=== PATIENT | female | born 1945 | race Caucasian/White ===

== ENCOUNTER 2018-07-02 01:33 | Inpatient (IN) ==
--- NOTE | 2018-07-02 01:46 | PROVIDER DOCUMENTATION ---
This chart was entered by Dolly Shirley Scribe, acting as scribe for Doug Price MD. HPI-General Adult - General Stated Complaint: B Time Seen by Provider: 07/02/18 01:33 Source: EMS Allergies/Adverse Reactions: Patient Allergies Allergy/AdvReac Type Severity Reaction Status Date / Time adhesive AdvReac RASH Verified 02/01/16 15:26 Home Medications: Home Medication List Medication Instructions Recorded Confirmed Last Taken Type Omeprazole 20 mg PO BID 11/23/13 10/29/17 02/01/16 History Morphine Sulfate [Morphine Sulfate 15 mg PO Q8HR 06/04/14 10/29/17 02/01/16 History ER] Gabapentin 400 mg PO TID 02/26/15 10/29/17 02/01/16 History Apixaban [Eliquis] 2.5 mg PO BID tablet 11/05/17 Unknown Rx Aspirin 81 mg PO DAILY chewtab 11/05/17 Unknown Rx Baclofen [Lioresal] 10 mg PO TID tablet 11/05/17 Unknown Rx LISINOpril [Prinivil] 2.5 mg PO DAILY tablet 11/05/17 Unknown Rx Oxycodone/APAP 10 mg/325 mg 1 each PO Q6H PRN PRN tablet 11/05/17 Unknown Rx [Percocet-10] Polyethylene Glycol 3350 [Miralax] 17 gm PO DAILY powder, packet 11/05/17 Unknown Rx ROSUVAstatin [Crestor] 40 mg PO DAILY tablet 11/05/17 Unknown Rx - History of Present Illness -Gen Adult Nature of Presenting Problems: pt is a 72 yr old white female with prior CVA with residual left sided weakness,chronic pain requiring daily morphine tablets, who is bedridden who presents by EMSwith reported altered mentation,apnea,and fingerstick glucose of 145. Patient arrives with GCS of 15, slow mentation, oriented to person/place/month. No reported fever, chest pain, productive cough. Review of Systems - Adult - REVIEW OF SYSTEMS - ADULT ROS:: limited per condition Constitutional: reports: no symptoms reported Eyes: reports: no symptoms reported Ears, Nose, Mouth & Throat: reports: no symptoms reported Cardiovascular: reports: no symptoms reported Respiratory: reports: no symptoms reported Gastrointestinal: reports: no symptoms reported Genitourinary: reports: no symptoms reported Musculoskeletal: reports: no symptoms reported Integumentary: reports: no symptoms reported Neurological: reports: no symptoms reported Psychiatric: reports: no symptoms reported Endocrine: reports: no symptoms reported Hematologic/Lymphatic: reports: no symptoms reported Allergic/Immunologic: reports: no symptoms reported All Other Systems: Reviewed and Negative Past History - Adult - PAST MEDICAL HISTORY-ADULT Review of Records: reports: Old Records Reviewed, Nursing Assessment Review, Medications Reviewed, Social history reviewed & non-contributory. Major Childhood Illnesses: reports: denies history Cardiovascular: reports: HTN Respiratory: reports: denies history Gastrointestinal: reports: ulcer Obstetrical/Gynecological: reports: denies history Genitourinary: reports: denies history Musculoskeletal: reports: chronic pain, intervertebral disc disease Neurological: reports: CVA, headaches/migraines Psychiatric: reports: anxiety Endocrine/Immune: reports: denies history Other Conditions: reports: denies history - PRIOR SURGERIES/PROCEDURES Surgical/Procedure History: reports: appendectomy, hysterectomy, BTL, back/neck (cervical and lumbar fusion), other (nerve stimulator) - IMMUNIZATION STATUS Childhood Immunizations: See Nurse Assessment Flu Vaccine: See Nurse Assessment - FAMILY HISTORY Family History: reviewed, not pertinent - SOCIAL HISTORY Living Situation: family Physical Exam-General - PHYSICAL EXAM-ADULT Initial Vital Signs Reviewed: Yes - CONSTITUTIONAL General Appearance: no apparent distress, slow to respond, other (bedridden with notable left sided weakness) - EYES Eyes: PERRL/EOMI - HEAD, EARS, NOSE, MOUTH & THROAT HENMT: normocephalic/atraumatic, moist mucous membranes - NECK Neck: supple - RESPIRATORY Respiratory: lungs clear, no pleuratic chest pain, no respiratory distress, no accessory muscle use - CARDIOVASCULAR Cardiovascular: regular rate, rhythm - GASTROINTESTINAL (ABDOMEN) Abdominal Exam: normal bowel sounds, non tender, soft - LYMPHATIC Lymphatic: no adenopathy - MUSCULOSKELETAL Back Exam: normal inspection, no CVA tenderness Extremity: other (left sided weakness) Peripheral Pulses: radial (R): 2+, radial (L): 2+ - SKIN Integumentary: normal color, normal turgor, warm/dry - NEUROLOGIC Neurologic: other (left sided weakness, uncooperative to exam) - PSYCHIATRIC Psych/Mental Status: oriented x 3, depressed affect Progress - PLAN OF CARE/RESULTS Result Diagrams: 07/02/18 02:00 07/02/18 02:00 - CONSULTS/PCP/HOSPITALIST Notification #1 *Consult/PCP/Hospitalist*: Dr. Chapin, hospitalist Time Discussed: 03:45 Consult Disposition: Admit Departure - Departure Date of Disposition Decision: 07/02/18 Time of Disposition Decision: 04:11 DIAGNOSIS: Hypernatremia, Hypoxemia Adverse drug reaction Qualifiers: Encounter type: initial encounter Qualified Code(s): T50.905A - Adverse effect of unspecified drugs, medicaments and biological substances, initial encounter Disposition: ADMITTED INPATIENT 09 Certified Medical Emergency: Emergent Condition: Stable Referrals and Follow-Ups: None,PCP [Primary Care Provider] - - Critical Care Note This patient required my direct & personal management of CC.: Yes Attestation - Physician/ DEBORA Attestation Patient care was provided by Advanced Practice Provider:: No The physician spent face to face time with patient:: Yes Advanced Practice Provider documentation review:: Supervising physician onsite and consulted in the evaluation and care of this patient. The physician did have a face to face encounter with the patient. This chart was documented by the indicated scribe, (Dolly Shirley Scribe) and accurately reflects the services I performed and decisions made by me, Brett Price ph, MD, as attested by the provider's signature.
[2018-07-02 01:48] LABS: BE 2.7 mmoll (-3.0-3.0); BLOOD TYPE ARTERIAL; METHB 1.3 % (0.0-1.5); O2(CT) 16.6 mL/dL (15.0-23.0); O2HB 94.6 % (95.0-99.0); PO2(98.6) 143 mmHg (60-100); SAMPLE BLOOD; SAO2 95.8 % (95.0-100.0); THB 12.3 g/dL (11.5-17.4); pH(98.6) 7.35 (7.35-7.45)
[2018-07-02 01:53] LABS: ALLEN TEST NO; MODALITY CANNULA; PCO2(98.6) 53 mmHg (35-45)
[2018-07-02 02:39] LABS: BASO# 0.05 X1000 (0.0-0.2); BASO% 0.7 % (0.0-0.8); EOS# 0.38 X1000 (0.0-0.7); EOS% 5.3 % (0.0-10.0); HEMATOCRIT 38.2 % (37.0-47.0); HEMOGLOBIN 12.2 g/dL (12.0-16.0); IMM GRAN# 0.02 X1000 (0.0-0.04); IMM GRAN% 0.3 % (0.0-0.5); LYMPH# 2.07 X1000 (1.2-3.4); LYMPH% 28.8 % (20.5-51.1); MCH 29.2 PG (27-31); MCHC 31.9 g/dL (33-37); MCV 91.4 FL (81-99); MONO# 0.75 X1000 (0.11-0.59); MONO% 10.4 % (1.7-9.3); MPV 9.7 FL (7.4-10.4); NEUT# 3.92 X1000 (1.4-6.5); NEUT% 54.5 % (42.2-75.2); PLT 249 X1000 (130-400); RBC 4.18 XMIL (4.2-5.4); RDW 13.5 % (11.5-14.5); WBC 7.19 X1000 (4.8-10.8)
[2018-07-02 03:05] LABS: BILIRUBIN URINE 2+ (NEGATIVE); BLOOD URINE TRACE (NEGATIVE); CLARITY SL. CLOUDY (CLEAR); COLOR ORANGE; GLUCOSE URINE NEGATIVE (NEGATIVE); KETONE URINE NEGATIVE (NEGATIVE); LEUKOCYTES URINE NEGATIVE (NEGATIVE); NITRITE URINE POSITIVE (NEGATIVE); PROTEIN URINE 2+(100 mg/dL) mg/dL (NEGATIVE); SP GRAVITY URINE 1.025; UR AMPHETAMINES QUAL NONE DETECTED (NONE DETECT); UR BARBITUATES QUAL NONE DETECTED (NONE DETECT); UR BENZODIAZEPIN QUAL NONE DETECTED (NONE DETECT); UR COCAINE QUAL NONE DETECTED (NONE DETECT); UR METHADONE QUAL NONE DETECTED (NONE DETECT); UR METHAMPHETAMINE QUAL NONE DETECTED (NONE DETECT); UR OPIATES QUAL PRESUMPTIVE POSITIVE (NONE DETECT); UR OXYCODONE QUAL PRESUMPTIVE POSITIVE (NONE DETECT); UR PCP QUAL NONE DETECTED (NONE DETECT); UROBILINOGEN URINE 8 mg/dL
[2018-07-02 03:06] LABS: UR CANNABINOIDS QUAL PRESUMPTIVE POSITIVE (NONE DETECT); UR PROPOXYPHENE QUAL NONE DETECTED (NONE DETECT); UR TCA QUAL PRESUMPTIVE POSITIVE (NONE DETECT); URINE BACTERIA 4+ /HFP; URINE EPITHELIAL CELLS <10 /HPF (<10); URINE RBC <10 /HPF (<10); URINE SOURCE CATH; URINE WBC <10 /HPF (<10)
[2018-07-02 03:20] LABS: AGAP 10; ALBUMIN 3.9 g/dL (3.5-5.0); ALKALINE PHOSPHATASE 61 U/L (32-104); BUN 13 mg/dL (8-22); CHLORIDE 110 mmol/L (98-107); COSMO 294; CREATININE 0.4 mg/dL (0.5-0.9); ESTIMATED GFR > 60; GLUCOSE 156 mg/dL (70-104); GOT 10 U/L (10-30); GPT 8 U/L (10-36); POTASSIUM 3.8 mmol/L (3.5-5.1); SODIUM 146 mmol/L (136-145); TCO2 26 mmol/L (25-35); TOTAL PROTEIN 6.3 g/dL (6.3-8.3)
[2018-07-02] MEDS ORDERED: NS 1,000 ML IV ONE (03:45)
[2018-07-02] MEDS ORDERED: NS 500 ML IV ONE (03:46)
[2018-07-02] MEDS ORDERED: NS 500 ML ONE (03:50)
[2018-07-02] MEDS ORDERED: ROCEPHIN 1 GM in NS 50 ML IV ONE (04:10)
--- NOTE | 2018-07-02 05:24 | Diag Imaging Result Doc PS360 ---
EXAM: CT HEAD W/O CONTRAST HISTORY: ams TECHNIQUE: CT head without contrast COMPARISON: 10/30/2017 FINDINGS: No parenchymal hemorrhage. No epidural or subdural hematoma. No subarachnoid hemorrhage. There is atrophy with chronic microvascular ischemic changes and multiple old small infarcts on the right. No mass identified on this noncontrasted exam. No hydrocephalus. No sinus opacification. IMPRESSION: 1.No hemorrhage 2.Atrophy with chronic microvascular ischemic changes and small old right-sided infarcts A preliminary report was given at 3:36 AM This exam was performed using automated exposure control, adjustment of mA or kV according to patient size, and/or use of iterative reconstruction technique. Electronically signed by Isaac Cobb 07/02/2018 5:22 AM
--- NOTE | 2018-07-02 05:30 | Diag Imaging Result Doc PS360 ---
EXAM: CHEST-PORTABLE HISTORY: cough TECHNIQUE: Portable chest single view COMPARISON: 10/28/2017 FINDINGS: The lungs are well expanded. The heart is not enlarged. The vessels are not distended. There are no infiltrates. No effusion identified. There has been surgery to the lower neck. IMPRESSION: No pneumonia. 'T Electronically signed by Isaac Cobb 07/02/2018 5:28 AM
[2018-07-02 08:02] LABS: BASO# 0.04 X1000 (0.0-0.2); BASO% 0.5 % (0.0-0.8); EOS# 0.33 X1000 (0.0-0.7); EOS% 4.5 % (0.0-10.0); HEMATOCRIT 38.9 % (37.0-47.0); HEMOGLOBIN 12.3 g/dL (12.0-16.0); IMM GRAN# 0.01 X1000 (0.0-0.04); IMM GRAN% 0.1 % (0.0-0.5); LYMPH% 28.6 % (20.5-51.1); MCH 29.1 PG (27-31); MCHC 31.6 g/dL (33-37); MCV 92.2 FL (81-99); MONO# 0.62 X1000 (0.11-0.59); MONO% 8.5 % (1.7-9.3); MPV 9.6 FL (7.4-10.4); NEUT# 4.23 X1000 (1.4-6.5); NEUT% 57.8 % (42.2-75.2); PLT 226 X1000 (130-400); RBC 4.22 XMIL (4.2-5.4); RDW 13.5 % (11.5-14.5); WBC 7.33 X1000 (4.8-10.8)
--- NOTE | 2018-07-02 08:11 | HISTORY AND PHYSICAL ---
ADDENDUM: Patient seen and examined by myself. Full note dictated and discussed with nurse practitioner. Patient presented to the hospital with a presumed syncopal episode. She was confused, disoriented. Unclear as to the etiology. Certainly she could have a urinary tract infection. We have her on antibiotics, IV fluids and awaiting cultures. However, the does note that she does not take morphine on a regular basis. In fact, had been out of it for 2 weeks because she ran out early from her previous daily usage. He did give her the typical dose yesterday and her confusion started last night, which certainly could be medication-related. However, she is very tired, fatigued, and difficult to arouse this morning still. So we will place her in the hospital and will follow. Please see full orders. cc: Rod Chapin MD
[2018-07-02 08:19] LABS: AGAP 9; ALBUMIN 3.9 g/dL (3.5-5.0); ALKALINE PHOSPHATASE 59 U/L (32-104); BUN 8 mg/dL (8-22); CALCIUM 9.8 mg/dL (8.8-10.2); CHLORIDE 106 mmol/L (98-107); CK PROFILE 18 U/L (24-173); COSMO 284; CREATININE 0.3 mg/dL (0.5-0.9); ESTIMATED GFR > 60; GLUCOSE 108 mg/dL (70-104); GOT 9 U/L (10-30); GPT 7 U/L (10-36); MAGNESIUM 1.7 mg/dL (1.5-2.7); SODIUM 143 mmol/L (136-145); TCO2 28 mmol/L (25-35); TOTAL PROTEIN 6.4 g/dL (6.3-8.3)
[2018-07-02 08:21] LABS: INR 1.02; PROTIME 13.9 Seconds (11.0-16.0)
[2018-07-02] MEDS ORDERED: SENOKOT PO PRN (09:47)
[2018-07-02] MEDS: NS 1,000 ML IV ONE ×2 (10:33→15:38)
[2018-07-02] MEDS: TYLENOL PO PRN ×3 (10:40→21:40)
[2018-07-02] MEDS: DUONEB (A & A) INH SCH ×4 (11:30→23:48)
--- NOTE | 2018-07-02 11:59 | HISTORY AND PHYSICAL ---
CHIEF COMPLAINT: Altered mental status and apnea. HISTORY OF PRESENT ILLNESS: Mrs. 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 The patient herself is a poor historian, is not at the bedside at this time, she is able to tell us that she has been out of her morphine, which she takes on a chronic basis, for about 2 weeks. She refilled the prescription yesterday and took her morphine as prescribed, sometime last night she was noted to be altered by her and apparently stopped breathing. There was a question of CPR, but ultimately 911 was called, and she was brought to the ER. In the ER, she was noted to be drowsy. Head CT was done, which did not show anything acute. Laboratory data was unremarkable with the exception of some mild hypernatremia and mild respiratory acidosis. Given that, she was admitted to our service. She is hemodynamically stable at this time and has no acute complaints with the exception of her chronic pain. PAST MEDICAL HISTORY: 1. History of right hemispheric stroke secondary to acute right carotid thrombus status post right carotid embolectomy by Dr. Manrique. 2. Chronic pain on narcotic therapy, pain is cervical spine and lumbar spine related. 3. Obstructive sleep apnea with poor medical compliance with CPAP. 4. Hypertension. PAST SURGICAL HISTORY: 1. She has had a hysterectomy. 2. Appendectomy. 3. Carpal tunnel surgery. 4. Cataract surgery. 5. C-spine and L-spine fusions. 6. Total knee arthroplasty. 7. Carotid embolectomy on the right. SOCIAL HISTORY: She is . currently not at the bedside. She denies tobacco, alcohol, or illicit drug use. ALLERGIES: Adhesive tapes. HOME MEDICATIONS: Tylenol 500 mg as needed every 4 hours, amitriptyline 50 mg p.o. at bedtime, duloxetine 30 mg p.o. daily, Neurontin 800 mg p.o. at bedtime, Lioresal 20 mg t.i.d., lovastatin 40 mg daily, Mirapex 0.125 mg p.o. t.i.d., morphine sulfate 15 mg p.o. every 8 hours, omeprazole 20 mg p.o. daily, Senokot 17.2 mg daily, trazodone 50-100 mg p.o. at bedtime, aspirin 81 mg daily, lisinopril 2.5 mg p.o. daily. REVIEW OF SYSTEMS: A 10-point review of systems obtained and found to be negative with the exception of the HPI. PHYSICAL EXAMINATION: VITAL SIGNS: Blood pressure is 128/60, heart rate is 69, respiratory rate 16, O2 saturation 96% on nasal cannula 4 L, temperature is 97.7. GENERAL: This is an elderly somewhat disheveled-appearing 72-year-old female lying in the hospital bed in no acute distress. NEUROLOGICAL: She is disoriented to time and place but she is able to state her name. She has left-sided paralysis. Strength is 5/5 in the right upper and lower extremity. Shoulder shrug is intact 5/5 on the right. Random alternating movements on the right is slow but intact. HEENT: Head is atraumatic and normocephalic. Her pupils are equal, round, and reactive to light. Oral mucosa is moist. NECK: Trachea is midline. There is no JVD. CHEST: Clear to auscultation. CARDIOVASCULAR: Regular rate and rhythm. S1 and S2 is noted. There are no murmurs. GASTROINTESTINAL: Soft, nondistended, nontender. Bowel sounds positive. EXTREMITIES: Lower extremities with 1+ edema bilaterally, pulses diminished but palpable. DIAGNOSTIC DATA: Head CT nothing acute. Chest x-ray is negative. EKG is pending. LAB DATA: WBC 7.33, hemoglobin 12.3, hematocrit 38.9, platelet count 226. INR 1.02. Sodium 143, potassium 4.0, chloride 106, CO2 28, anion gap 9, BUN 8, creatinine 0.3, glucose is 108, calcium 9.8, magnesium 1.7, total bilirubin 0.2, AST 9, ALT 7, alkaline phosphatase 59. CK 18, troponin negative. Albumin 3.9. ASSESSMENT AND PLAN: 1. Toxic encephalopathy: Very likely secondary to her morphine use as she had not taken any for 2 weeks and then restarted abruptly yesterday. Symptoms coincide with readministration of this medication. She does have evidence of urinary tract infection but this is unlikely the cause of the level of mentation changes in this patient. Will continue antibiotics and light IV fluids. 2. Urinary tract infection: Continue Rocephin. 3. History of cerebrovascular accident with left-sided hemiplegia. Aware. No new focal deficits noted. Head CT negative. 4. Chronic pain. We will hold her medications at least for now and monitor her response. She is quite drowsy at this time. Will need to look at her medication list and try and decide if medications need to be stopped and discuss with primary care provider. 5. Hypertension. Continue Prinivil. 6. Deep venous thrombosis prophylaxis with Lovenox. 7. Disposition. Will consult physical therapy and social work as she may need placement. Dictated by SPRING Luna for Rod Chapin MD cc: SPRING Luna MD
[2018-07-02] MEDS: LIORESAL PO SCH ×2 (12:26→18:32)
[2018-07-02] MEDS: ELAVIL PO SCH (21:10)
[2018-07-03] MEDS: TYLENOL PO PRN ×4 (01:40→22:35)
[2018-07-03] MEDS: DUONEB (A & A) INH SCH ×6 (04:23→23:04)
[2018-07-03] MEDS: ROCEPHIN 1 GM in NS 50 ML IV SCH (05:13)
[2018-07-03] MEDS: PRILOSEC PO SCH (06:19)
[2018-07-03 06:40] LABS: BASO# 0.03 X1000 (0.0-0.2); BASO% 0.5 % (0.0-0.8); EOS# 0.31 X1000 (0.0-0.7); EOS% 5.2 % (0.0-10.0); HEMATOCRIT 38.2 % (37.0-47.0); HEMOGLOBIN 11.8 g/dL (12.0-16.0); IMM GRAN# 0.01 X1000 (0.0-0.04); IMM GRAN% 0.2 % (0.0-0.5); LYMPH% 33.3 % (20.5-51.1); MCH 28.3 PG (27-31); MCHC 30.9 g/dL (33-37); MCV 91.6 FL (81-99); MONO# 0.45 X1000 (0.11-0.59); MONO% 7.5 % (1.7-9.3); MPV 9.8 FL (7.4-10.4); NEUT% 53.3 % (42.2-75.2); PLT 210 X1000 (130-400); RBC 4.17 XMIL (4.2-5.4); RDW 13.4 % (11.5-14.5)
[2018-07-03 06:57] LABS: AGAP 11; BUN 8 mg/dL (8-22); CALCIUM 9.7 mg/dL (8.8-10.2); CHLORIDE 107 mmol/L (98-107); COSMO 288; CREATININE 0.2 mg/dL (0.5-0.9); ESTIMATED GFR > 60; GLUCOSE 114 mg/dL (70-104); POTASSIUM 3.4 mmol/L (3.5-5.1); SODIUM 145 mmol/L (136-145); TCO2 28 mmol/L (25-35)
[2018-07-03] MEDS: LIORESAL PO SCH ×3 (11:26→18:10)
[2018-07-03] MEDS: PRINIVIL PO SCH (11:26)
[2018-07-03] MEDS: CYMBALTA PO SCH (11:26)
[2018-07-03] MEDS: VITAMIN D PO SCH (11:27)
[2018-07-03] MEDS: ASPIRIN PO SCH (11:27)
[2018-07-03] MEDS: MEVACOR PO SCH (11:27)
[2018-07-03] MEDS ORDERED: NICODERM PATCH TD SCH (15:15)
[2018-07-03] MEDS: ELAVIL PO SCH (20:54)
--- NOTE | 2018-07-03 22:32 | PROGRESS NOTE ---
DATE: 07/03/2018 SUBJECTIVE: The patient's notes she still cannot participate in her own care at home. Denies any fevers or chills. PHYSICAL EXAM: Vital Signs: Temperature 99, pulse 81, respiratory rate 20, BP 112/55. General: Patient is awake, alert. She is in no current respiratory distress. HEENT: Normocephalic. Neck: Supple. Cardiovascular: Regular rate. Chest: Clear. Abdomen: Soft. Extremities: She has no edema. Neurologic: No focal changes. ASSESSMENT: 1. Toxic encephalopathy, appears resolved, likely secondary to medication over usage. 2. Urinary tract infection which certainly can be causing her metabolic encephalopathy. 3. Chronic pain. 4. History of cerebrovascular accident with resultant left-sided hemiplegia. PLAN: Continue patient in hospital. Continue Rocephin and will follow. We will get physical therapy involved. cc: Rod Chapin MD
[2018-07-04] MEDS: TYLENOL PO PRN ×3 (02:44→20:42)
[2018-07-04] MEDS: DUONEB (A & A) INH SCH ×6 (03:14→22:43)
[2018-07-04] MEDS: ROCEPHIN 1 GM in NS 50 ML IV SCH (06:05)
[2018-07-04] MEDS: PRILOSEC PO SCH (06:43)
[2018-07-04 07:03] LABS: BASO# 0.03 X1000 (0.0-0.2); BASO% 0.4 % (0.0-0.8); EOS# 0.35 X1000 (0.0-0.7); EOS% 4.3 % (0.0-10.0); HEMATOCRIT 39.9 % (37.0-47.0); HEMOGLOBIN 12.7 g/dL (12.0-16.0); IMM GRAN# 0.01 X1000 (0.0-0.04); IMM GRAN% 0.1 % (0.0-0.5); LYMPH# 1.82 X1000 (1.2-3.4); LYMPH% 22.4 % (20.5-51.1); MCH 28.5 PG (27-31); MCHC 31.8 g/dL (33-37); MCV 89.7 FL (81-99); MONO# 0.84 X1000 (0.11-0.59); MONO% 10.3 % (1.7-9.3); MPV 9.9 FL (7.4-10.4); NEUT# 5.07 X1000 (1.4-6.5); NEUT% 62.5 % (42.2-75.2); PLT 239 X1000 (130-400); RBC 4.45 XMIL (4.2-5.4); RDW 13.8 % (11.5-14.5); WBC 8.12 X1000 (4.8-10.8)
[2018-07-04 07:27] LABS: AGAP 13; BUN 7 mg/dL (8-22); CALCIUM 10.6 mg/dL (8.8-10.2); CHLORIDE 103 mmol/L (98-107); COSMO 283; CREATININE 0.3 mg/dL (0.5-0.9); ESTIMATED GFR > 60; GLUCOSE 104 mg/dL (70-104); POTASSIUM 3.5 mmol/L (3.5-5.1); SODIUM 143 mmol/L (136-145); TCO2 28 mmol/L (25-35)
[2018-07-04] MEDS: MEVACOR PO SCH (08:38)
[2018-07-04] MEDS: ASPIRIN PO SCH (08:39)
[2018-07-04] MEDS: PRINIVIL PO SCH (08:39)
[2018-07-04] MEDS: CYMBALTA PO SCH (08:39)
[2018-07-04] MEDS: LIORESAL PO SCH ×3 (08:39→18:04)
[2018-07-04] MEDS: VITAMIN D PO SCH (08:39)
[2018-07-04] MEDS ORDERED: NS 1,000 ML ONE (13:51)
[2018-07-04] MEDS: ELAVIL PO SCH (20:42)
--- NOTE | 2018-07-04 21:35 | PROGRESS NOTE ---
DATE: 07/04/2018 SUBJECTIVE: Patient has no new complaints. She states she is still tired and fatigued. She is unable to get out of bed with assistance. Her notes that mentally she seems to be back to her baseline. OBJECTIVE: Temperature 97.8 degrees, pulse 90, respiratory rate 18, BP 145/65.General: Patient is awake, alert, currently in no respiratory distress. HEENT: Normocephalic. Neck: Supple. Cardiovascular: Regular rate. Chest: Clear. Abdomen: Soft. Extremities: She has 1+ edema bilaterally. Neurologic: No focal changes. ASSESSMENT: 1. Escherichia coli urinary tract infection, alicea sensitive. Currently on Rocephin. 2. Metabolic encephalopathy secondary to Escherichia coli, improved. 3. History of cerebrovascular accident with right-sided hemiplegia. 4. Chronic pain. 5. Hypertension. PLAN: We will continue patient in the hospital. Certainly feel as though she will need rehabilitation prior to discharge. We will continue to follow. cc: Rod Chapin MD
[2018-07-05] MEDS: DUONEB (A & A) INH SCH ×6 (00:04→19:56)
[2018-07-05] MEDS: TYLENOL PO PRN ×2 (02:29→20:18)
[2018-07-05] MEDS: PRILOSEC PO SCH (06:15)
[2018-07-05] MEDS: ROCEPHIN 1 GM in NS 50 ML IV SCH (06:15)
[2018-07-05] MEDS: VITAMIN D PO SCH (08:43)
[2018-07-05] MEDS: MIRAPEX PO SCH ×3 (08:44→16:21)
[2018-07-05] MEDS: CYMBALTA PO SCH (08:44)
[2018-07-05] MEDS: ASPIRIN PO SCH (08:44)
[2018-07-05] MEDS: LIORESAL PO SCH ×3 (08:44→16:21)
[2018-07-05] MEDS: MS CONTIN PO SCH ×2 (08:45→20:08)
[2018-07-05] MEDS: MEVACOR PO SCH (08:52)
[2018-07-05] MEDS: PRINIVIL PO SCH (08:52)
[2018-07-05] MEDS ORDERED: MS CONTIN PO SCH (13:00)
--- NOTE | 2018-07-05 17:14 | PROGRESS NOTE ---
DATE: 07/05/2018 SUBJECTIVE: Patient is wanting her home medications restarted. Says she has not been sleeping well. States she is having restless leg issues. Denies any current other complaints. PHYSICAL EXAM: Vital Signs: Temp 98 degrees, pulse 101, respiratory 18, BP 142/73. General: Patient is awake, alert. She is currently in no respiratory distress. She appears oriented back to her baseline mental status. HEENT: Normocephalic. Neck: Supple. CARDIOVASCULAR: Regular rate. Chest: Clear, nonlabored. Abdomen: Soft, nondistended. Extremities: Moves all extremities with the exception of left side which has chronic weakness due to a previous CVA. ASSESSMENT: 1. Metabolic encephalopathy likely secondary to medication over usage. 2. Restless legs syndrome. 3. History of cerebrovascular accident with left-sided hemiplegia. 4. Chronic pain. 5. Hypertension. 6. ESBL negative E. coli UTI. PLAN: We will continue Rocephin. We will restart her home medications although discussed with patient that I am concerned that this may be what caused her to be in the hospital to start with, certainly could be the UTI causing metabolic encephalopathy, but her symptoms resolved way too quickly for it to have been just simply been from a UTI. Most likely it was medication over usage unintentionally. We will follow closely. cc: Rod Chapin MD
[2018-07-05] MEDS: ELAVIL PO SCH (20:08)
[2018-07-05] MEDS: NEURONTIN PO SCH (20:08)
[2018-07-06] MEDS: ROCEPHIN 1 GM in NS 50 ML IV SCH (04:13)
[2018-07-06] MEDS: DUONEB (A & A) INH SCH ×6 (04:38→23:21)
[2018-07-06] MEDS: PRILOSEC PO SCH (06:14)
[2018-07-06] MEDS: CYMBALTA PO SCH (08:28)
[2018-07-06] MEDS: VITAMIN D PO SCH (08:28)
[2018-07-06] MEDS: MEVACOR PO SCH (08:28)
[2018-07-06] MEDS: LIORESAL PO SCH ×3 (08:29→17:15)
[2018-07-06] MEDS: MS CONTIN PO SCH ×2 (08:29→20:07)
[2018-07-06] MEDS: ASPIRIN PO SCH (08:29)
[2018-07-06] MEDS: MIRAPEX PO SCH ×3 (08:29→17:15)
[2018-07-06] MEDS: PRINIVIL PO SCH (08:30)
--- NOTE | 2018-07-06 17:47 | PROGRESS NOTE ---
DATE: 07/06/2018 SUBJECTIVE: Patient notes that she is feeling fine. Denies any confusion, disorientation. Denies any chest pain. PHYSICAL EXAMINATION: Vital Signs: Temperature 97.7 degrees, pulse 79, respiratory rate 18, BP 127/66. General: Patient is awake, alert. She is in no distress. HEENT: Normocephalic. Neck: Supple. Cardiovascular: Regular rate. Chest: Clear and nonlabored. Abdomen: Soft, nondistended. Extremities: She moves all extremities, although still has left-sided hemiplegia from recent stroke. Neurologic: No acute focal neurological changes. ASSESSMENT: 1. Metabolic encephalopathy. Likely secondary to her Escherichia coli urinary tract infection, although certainly could have some bearing from her recent restarting of her medications. 2. Cerebrovascular accident with left-sided weakness and hemiplegia. 3. Chronic pain. 4. Hypertension. PLAN: Overall patient is better. We will continue antibiotics. Tomorrow she can transition to oral antibiotics. I will continue Rocephin today. We will continue physical therapy. Can transfer to rehab when bed is available. cc: Rod Chapin MD
[2018-07-06] MEDS: ELAVIL PO SCH (20:07)
[2018-07-06] MEDS: NEURONTIN PO SCH (20:07)
[2018-07-07] MEDS: DUONEB (A & A) INH SCH ×3 (03:19→11:59)
[2018-07-07] MEDS: ROCEPHIN 1 GM in NS 50 ML IV SCH (04:05)
[2018-07-07] MEDS: PRILOSEC PO SCH (06:04)
[2018-07-07] MEDS: PRINIVIL PO SCH (10:23)
[2018-07-07] MEDS: MS CONTIN PO SCH (10:23)
[2018-07-07] MEDS: ASPIRIN PO SCH (10:23)
[2018-07-07] MEDS: LIORESAL PO SCH (10:23)
[2018-07-07] MEDS: CYMBALTA PO SCH (10:24)
[2018-07-07] MEDS: VITAMIN D PO SCH (10:26)
[2018-07-07] MEDS: MIRAPEX PO SCH (10:26)
[2018-07-07] MEDS: TYLENOL PO PRN (11:42)
--- NOTE | 2018-07-07 12:13 | DISCHARGE SUMMARY ---
ADMISSION DATE: 07/03/2018 DISCHARGE DATE: DISCHARGE ADDENDUM: She is sitting up in bed. Her only complaint is left foot pain. She seems fairly with it or at least at baseline. Her exam is unremarkable. She has left-sided hemiplegia with left-sided facial weakness too. She is going to go to rehab today. She has a nearly pansensitive E. coli intermediately sensitive to ampicillin. Of course, she is going out on Levaquin 500 mg for another 5 days in addition to her other medications. Discharge condition is stable. This is a [id number] encounter note with Maria R Corona. TIME SPENT: Greater than 30 minute discharge. cc: Lex Morales MD
--- NOTE | 2018-07-07 12:37 | DISCHARGE SUMMARY ---
ADMISSION DATE: 07/02/2018 DISCHARGE DATE: 07/07/2018 CONSULTATIONS: None. PERTINENT PROCEDURES: Head CT. No hemorrhage. Atrophy with chronic microvascular ischemic changes and small right sided infarct. DISCHARGE DIAGNOSES: 1. Toxic encephalopathy, believed to be secondary to morphine use. The patient had not taken any for 2 weeks. Then restarted abruptly the day before admission. Her symptoms coincided with readministration of the medications. She did have evidence of a urinary tract infection. She was placed on intravenous antibiotics and initially held any sedating medications. She is now awake, alert, and oriented. Follows commands. Answers questions appropriately and has been accepted to [facility]. 2. Urinary tract infection, Escherichia coli. She has been on intravenous Rocephin and will transition over to oral Levaquin. 3. History of cerebrovascular accident with left-sided hemiplegia, aware. No new focal deficits. Head computed tomography negative. 4. Chronic pain. Initially her home medications were held. She has been reinitiated back on her morphine and gabapentin. 5. Hypertension. Continue Prinivil. HOSPITAL COURSE: Briefly, Ms. Panchal is a 72-year-old female with history of right- sided hemispheric CVA secondary to carotid artery occlusion with complete left-sided hemiplegia, chronic pain, on heavy narcotic therapy, presented to the ED with weakness and questionable apnea, as well as altered mental status. The patient had been on her morphine for 2 weeks. She refilled her prescription the day prior to admission and took her morphine as prescribed. She was noted to be altered by her the night before and apparently she stopped breathing. There was a question of CPR, but 911 was ultimately called. She was brought to the ED. Noted to be drowsy. Head CT did not show anything acute. Laboratory data was essentially unremarkable except for some mild hyponatremia and mild respiratory acidosis. She was hemodynamically stable. She was admitted to the hospitalist service. Initially held any sedating medications, treated for her urinary tract infection. Slowly started back on her home pain medications. The patient has tolerated well. She has had a stable hospital course and will be discharged to [facility] today. VITAL SIGNS: Temperature is 98.1 degrees, heart rate 88, respirations 18, blood pressure 134/58, O2 99% on room air. DISCHARGE DIET: Regular. DISCHARGE MEDICATIONS: 1. Amitriptyline 50 mg p.o. at bedtime. 2. Gabapentin 800 mg p.o. at bedtime. 3. Trazodone 50 mg 1 to 2 tablets p.o. at bedtime p.r.n. 4. Tylenol 500 mg p.o. q.4 hours p.r.n. pain. 5. Morphine sulfate 15 mg p.o. q.8 hours. 6. Baclofen 20 mg p.o. t.i.d. 7. Lovastatin 40 mg p.o. daily. 8. Mirapex 0.25 mg p.o. t.i.d. 9. Prilosec 20 mg p.o. daily. 10. Senna 2 tablets p.o. daily. 11. Vitamin D 5000 units p.o. daily. 12. Cymbalta 30 mg p.o. daily. 13. Aspirin 81 mg p.o. daily. 14. Levaquin 500 mg p.o. daily. 15. Prinivil 2.5 mg p.o. daily. FOLLOW-UP: Ms. Hernandez is being discharged to [facility] for physical therapy. She is to take all medications as prescribed. She can return to the ED or call 911 for any worsening of symptoms. Dictated by SPRING Carreon for Lex Morales MD cc: Lex Morales MD
[2018-07-07 14:12] VITALS: BP 96/51
[2018-07-07] MEDS ORDERED: MEVACOR PO SCH (21:00)
== END 2018-07-07 15:03 | DRG 92 ==
LOC: P.ED 01:33 → P.MEDSURG 01:33 → SUATTDRO 07-03 10:23
PROVIDERS: ATTEND Internal Medicine
CPT/HCPCS: 70450; 71010; 71045; 80048; 80053; 80104; 80301; 80305; 80307; 80320; 81001; 82055; 82550; 82805; 83735; 83880; 84484; 85025; 85610; 87040; 87077; 87088; 87186; 93005; 94640; 94761; 97110; 97163; 97530; 99285; A9270; G0431; G0434; G0477; G0480; G6040; J0696; J7030; J7040